=== PATIENT | male | born 1975 | race Caucasian/White ===

== ENCOUNTER 2019-10-18 07:17 | Emergency (ER) | payer SELFPAY ==
[~2019-10-18] VITALS: Ht 175.3 cm; Wt 96.2 kg
[2019-10-18] MEDS ORDERED: Percocet 5-3251 EACH PO (08:39)
[2019-10-18] MEDS ORDERED: IBUP400 PO (08:39)
== END 2019-10-18 08:49 | disposition home or self-care (01) ==
LOC: ER 07:17
DX: S82.141A Displaced bicondylar fracture of right tibia, initial encounter for closed fracture (principal); Z88.0 Allergy status to penicillin; V86.56XA Driver of dirt bike or motor/cross bike injured in nontraffic accident, initial encounter
CPT/HCPCS: 29505; 73564; 99283-25

== ENCOUNTER 2024-05-30 19:39 | Emergency (ER) | payer OTHER ==
[~2024-05-30] VITALS: Ht 175.3 cm; Wt 98.0 kg
[~2024-05-30 19:39] MED LIST: IBUP400 PO; Percocet 5-3251 EACH PO
[2024-05-30 20:09] VITALS: BP 144/89
[2024-05-30] MEDS ORDERED: Acetaminophen 500 MG Tab PO ONE (21:40)
[2024-05-30] MEDS ORDERED: Ibuprofen 400 MG Tab PO ONE (21:40)
== END 2024-05-30 21:35 | disposition home or self-care (01) ==
LOC: ER 19:39
DX: T14.90XA Injury, unspecified, initial encounter (principal); J06.9 Acute upper respiratory infection, unspecified; Z88.0 Allergy status to penicillin; V67.5XXA Driver of heavy transport vehicle injured in collision with fixed or stationary object in traffic accident, initial encounter
CPT/HCPCS: 99283